=== PATIENT | female | born 1985 | race Caucasian/White ===

== ENCOUNTER 2018-07-05 16:51 | Emergency (ER) | payer BC, OTHER ==
[~2018-07-05] VITALS: Ht 165.1 cm; Wt 104.3 kg
[~2018-07-05 16:51] MED LIST: ALPR.25T PO; CFP200T PO; CITA40TA19 PO; CLN2C40 PV; IBP600T1 PO; OXYC-12 PO; PRM25T PO; TERC45CR VG; ZLP10T PO
--- OUTSIDE RECORDS SUMMARY | 2018-07-05 16:56 | XMS REPORT ---
Author Author JEFFREY Nicole [facility] IN [facility] Address [address] [place] [address] Care Team Providers Care Wafer Fab Operator Name Role Phone JEFFREY Nicole Unavailable PROBLEMS Unknown Problems ALLERGIES No Information ENCOUNTERS Encounter Location Date Diagnosis [facility] IN [facility] [id number], [place] [address] Oct, [facility] [id number], [place] [address] Sep, Screen for STD (sexually transmitted disease) Z11.3 [facility] [address] [id number], [place] [address] Sep, Screen for STD (sexually transmitted disease) Z11.3 IMMUNIZATIONS No Known Immunizations SOCIAL HISTORY Never Assessed REASON FOR VISIT PLAN OF CARE VITAL SIGNS MEDICATIONS Unknown Medications RESULTS No Results PROCEDURES No Known procedures INSTRUCTIONS MEDICATIONS ADMINISTERED No Known Medications MEDICAL (GENERAL) HISTORY Type Description Date Surgical History appendectomy Surgical History cholecystectomy Surgical History section Surgical History breast implants Surgical History arthroscopic right hip Hospitalization History Mental Health and Surgery
--- OUTSIDE RECORDS SUMMARY | 2018-07-05 16:56 | XMS REPORT ---
Author Author JEFFREY Nicole [facility] IN [facility] Address [address] [place] [address] Care Team Providers Care Cardiac Technician Name Role Phone JEFFREY Nicole Unavailable PROBLEMS Unknown Problems ALLERGIES No Known Allergies ENCOUNTERS Encounter Location Date Diagnosis [facility] IN [facility] [address] [facility] [id number] [address] Oct, [facility] [address] [facility] [id number], [place] [address] Sep, Screen for STD (sexually transmitted disease) Z11.3 [facility] IN [facility] [address] [facility] [id number], [place] [address] Sep, Screen for STD (sexually transmitted disease) Z11.3 IMMUNIZATIONS No Known Immunizations SOCIAL HISTORY Never Assessed REASON FOR VISIT STD check- Merena x3 years sexual partener not exclusive JStrasserRN PLAN OF CARE Activity Details Follow Up prn Reason: VITAL SIGNS Height 66 in 2016-09-14 Weight 213.2 lbs 2016-09-14 Temperature 97.5 degrees Fahrenheit 2016-09-14 Heart Rate 120 bpm 2016-09-14 Respiratory Rate 22 2016-09-14 BMI 34.41 kg/m2 2016-09-14 Blood pressure systolic 134 mmHg 2016-09-14 Blood pressure diastolic 80 mmHg 2016-09-14 MEDICATIONS Medication Instructions Dosage Frequency Start Date End Date Duration Status Trazodone HCl 150 MG Orally Once a day 1 tablet at bedtime as needed 24h Active Fetzima 80 MG Orally Once a day 1 capsule 24h Active RESULTS Name Result Date Reference Range TRICHOMONAS (IN HOUSE) 2016-09-14 TRICHOMONAS negative Control + Lot # [id number] Exp date 2017-08-08 BACTERIAL VAGINOSIS (IN HOUSE) 2016-09-14 RESULTS negative Control + Lot # [id number] Exp date 2017-01 CULTURE, GENITAL 2016-09-14 Genital Culture, Routine Final report Result 1 GC/CHLAM PROBE (STATE) 2016-09-14 CHLAMYDIA GC PROCEDURES Procedure Date Ordered Result Body Site TRICHOMONAS ASSAY W/OPTIC September 14, 2016 STEPHENS VAG, DNA, DIR PROBE September 14, 2016 No Charge September 14, 2016 CULTURE, BACTERIA, OTHER September 14, 2016 INSTRUCTIONS MEDICATIONS ADMINISTERED No Known Medications MEDICAL (GENERAL) HISTORY Type Description Date Surgical History appendectomy Surgical History cholecystectomy Surgical History section Surgical History breast implants Surgical History arthroscopic right hip Hospitalization History Mental Health and Surgery
--- OUTSIDE RECORDS SUMMARY | 2018-07-05 16:56 | XMS REPORT ---
Author Author JEFFREY Nicole Organization [facility] Address [address] [place] [address] Care Team Providers Care Print Line Inspector Name Role Phone JEFFREY Nicole Unavailable PROBLEMS Unknown Problems ALLERGIES No Information ENCOUNTERS Encounter Location Date Diagnosis [facility] [address] [facility] [id number], [place] [address] Oct, [facility] [address] [facility] [id number], [place] [address] Sep, Screen for STD (sexually transmitted disease) Z11.3 [facility] [address] [facility] [id number], [place] [address] Sep, Screen for STD (sexually transmitted disease) Z11.3 IMMUNIZATIONS No Known Immunizations SOCIAL HISTORY Never Assessed REASON FOR VISIT Lab (walk-in) PLAN OF CARE VITAL SIGNS MEDICATIONS Unknown Medications RESULTS Name Result Date Reference Range HEP C ANTIBODY (STATE) 2016-09-14 RESULTS non reactive SYPHILIS (STATE) 2016-09-14 HIV (STATE) 2016-09-14 HEP B SURFACE ANTIGEN (STATE) 2016-09-14 HEP B ANTIBODY non reactive HEP B ANTIBODY (RML) HEP B ANTIBODY (STATE) PROCEDURES Procedure Date Ordered Result Body Site No Charge September 17, 2016 VENIPUNCT, ROUTINE* September 17, 2016 INSTRUCTIONS MEDICATIONS ADMINISTERED No Known Medications MEDICAL (GENERAL) HISTORY Type Description Date Surgical History appendectomy Surgical History cholecystectomy Surgical History section Surgical History breast implants Surgical History arthroscopic right hip Hospitalization History Mental Health and Surgery
--- OUTSIDE RECORDS SUMMARY | 2018-07-05 16:56 | XMS REPORT ---
Author Author NICO DURANT [facility] Address [address] [place] [address] Care Team Providers Care Brush Material Preparer Name Role Phone NICO DURANT Unavailable PROBLEMS Unknown Problems ALLERGIES Substance Reaction Event Type Date Status Compazine tardive dyskinesia Drug Allergy July, Active ENCOUNTERS Encounter Location Date Diagnosis [facility] [address] [address] July, Hives L50.9 [facility] [id number] [place] [address] Oct, [facility] [address] [address] Sep, Screen for STD (sexually transmitted disease) Z11.3 [facility] [address] [address] Sep, Screen for STD (sexually transmitted disease) Z11.3 IMMUNIZATIONS No Known Immunizations SOCIAL HISTORY Never Assessed REASON FOR VISIT welts, intermittent hives since may, have resolved at this time-----Jarrett , has been seen in urgent care and given steroids in the past PLAN OF CARE Activity Details Follow Up 4 Weeks Reason:PAP/WWE VITAL SIGNS Height 66 in 2017-08-07 Weight 235 lbs 2017-08-07 Temperature 98.1 degrees Fahrenheit 2017-08-07 Heart Rate 90 bpm 2017-08-07 Respiratory Rate 20 2017-08-07 BMI 37.93 kg/m2 2017-08-07 Blood pressure systolic 100 mmHg 2017-08-07 Blood pressure diastolic 64 mmHg 2017-08-07 MEDICATIONS Medication Instructions Dosage Frequency Start Date End Date Duration Status Fetzima 80 MG Orally Once a day 1 capsule 24h Active Mirena Active Loratadine Active RESULTS No Results PROCEDURES No Known procedures INSTRUCTIONS MEDICATIONS ADMINISTERED No Known Medications MEDICAL (GENERAL) HISTORY Type Description Date Surgical History appendectomy Surgical History cholecystectomy Surgical History section Surgical History breast implants Surgical History arthroscopic right hip Hospitalization History Mental Health and Surgery
[2018-07-05] MEDS ORDERED: LACTATED RINGERS 1,000 ML IV ONE (17:19)
--- NOTE | 2018-07-05 17:24 | ED Respiratory ---
General Stated Complaint: FEVER,CHILLS Source: patient Exam Limitations: no limitations History of Present Illness Date Seen by Provider: Jul 05, 2018 Time Seen by Provider: 17:09 Initial Comments Patient presents to ER by private conveyance with chief complaint for the past months she's had some respiratory cough and cold symptoms and when it went on for about 10 days she started having some sinus discharge she went to the walk- in clinic at [facility] and they told her she had sinusitis and viral upper respiratory tract infection. They gave her a shot of steroids and put her on Augmentin for 10 days. At the end of that she was feeling pretty good however a few days later she started getting symptoms back. No sore throat no significant nasal discharge this time but is having some chills without having actually check a temperature. She is more concerned because she's been coughing a lot sometimes productive. She feels like it is getting worse over the past couple weeks. She's tried all the aips-fhl-dusmeks cough and cold remedies as well as a dextromethorphan cough syrup prescribed by the clinic. She said she's not able to get any sleep because the coughing and is very exasperated about this. No history of lung disease, she quit smoking a few weeks ago from about a quarter pack per day. She does not smoke marijuana but she did try edible couple days ago because she was desperate to get some sleep. She has no other significant medical history except for some depression. She didn't bring she test couple days ago and it was negative. Allergies and Home Medications Allergies Coded Allergies: No Known Allergies (Verified Allergy, Unknown, 12/07/05) Home Medications Alprazolam 0.25 Mg Tablet, 1 TAB PO HS, (Reported) qHS as needed Citalopram Hydrobromide 40 Mg Tablet, 1 EACH PO DAILY, (Reported) Ibuprofen 600 Mg Tab, 600 MG PO Q6HR, (Reported) q6hrs as needed Oxycodone Hcl/Acetaminophen 1 Each Tablet, 1-2 EACH PO Q4-6HR PRN, (Reported) Promethazine Hcl 25 Mg Tablet, 1 TAB PO Q6H, (Reported) q6hrs as needed Terconazole 45 Gm Cream.appl, 45 GM VG QHS, (Reported) Zolpidem Tartrate 10 Mg Tab, 10 MG PO HS PRN, (Reported) Patient Home Medication List Home Medication List Reviewed: Yes Review of Systems Review of Systems Constitutional: chills; No fever; malaise EENTM: No ear discharge, No hearing loss, No ear pain Respiratory: cough, phlegm; No short of breath, No stridor, No wheezing Cardiovascular: No chest pain, No edema Gastrointestinal: No abdominal pain, No constipation, No diarrhea, No nausea Genitourinary: No discharge, No dysuria Past Iwglefw-Reyebf-Kwghcr Hx Patient Social History Alcohol Use: Denies Use Recreational Drug Use: Yes Drug of Choice: THC, Hx Opiates Smoking Status: Current Someday Smoker Type Used: Cigarettes (0.25 ppd) Recent Foreign Travel: No Contact w/Someone Who Travel: No Physical Exam Vital Signs - First Documented 07/05/18 17:30 Temp 97.8 Pulse 146 Resp 18 B/P (MAP) 153/120 (131) Pulse Ox 97 O2 Delivery Room Air Capillary Refill : Height: '" Weight: lbs. oz. kg; BMI Method: General Appearance: mild distress, obese Eyes: Bilateral Eye Normal Inspection, Bilateral Eye PERRL, Bilateral Eye EOMI HEENT: PERRL/EOMI, normal ENT inspection, TMs normal, pharynx normal Neck: non-tender, full range of motion, supple, normal inspection Respiratory: lungs clear, no respiratory distress, no accessory muscle use, decreased breath sounds (mildly) Cardiovascular: normal peripheral pulses, regular rate, rhythm, no edema Neurologic/Psychiatric: alert, normal mood/affect, oriented x 3 Skin: normal color, warm/dry Progress/Results/Core Measures Suspected Sepsis SIRS Temperature: Pulse: Respiratory Rate: Laboratory Tests 07/05/18 17:46: White Blood Count 11.1H Blood Pressure / Mean: Laboratory Tests 07/05/18 17:46: Creatinine 0.86, Platelet Count 333, Total Bilirubin 0.8 Results/Orders Lab Results Laboratory Tests Test 07/05/18 17:46 07/05/18 18:30 Range/Units White Blood Count 11.1 H 4.3-11.0 10^3/uL Red Blood Count 5.12 4.35-5.85 10^6/uL Hemoglobin 14.1 11.5-16.0 G/DL Hematocrit 43 35-52 % Mean Corpuscular Volume 85 80-99 FL Mean Corpuscular Hemoglobin 28 25-34 PG Mean Corpuscular Hemoglobin Concent 33 32-36 G/DL Red Cell Distribution Width 14.1 10.0-14.5 % Platelet Count 333 130-400 10^3/uL Mean Platelet Volume 10.2 7.4-10.4 FL Neutrophils (%) (Auto) 58 42-75 % Lymphocytes (%) (Auto) 30 12-44 % Monocytes (%) (Auto) 9 0-12 % Eosinophils (%) (Auto) 2 0-10 % Basophils (%) (Auto) 0 0-10 % Neutrophils # (Auto) 6.4 1.8-7.8 X 10^3 Lymphocytes # (Auto) 3.3 1.0-4.0 X 10^3 Monocytes # (Auto) 1.0 0.0-1.0 X 10^3 Eosinophils # (Auto) 0.2 0.0-0.3 10^3/uL Basophils # (Auto) 0.0 0.0-0.1 10^3/uL Sodium Level 139 135-145 MMOL/L Potassium Level 3.5 L 3.6-5.0 MMOL/L Chloride Level 105 98-107 MMOL/L Carbon Dioxide Level 21 21-32 MMOL/L Anion Gap 13 5-14 MMOL/L Blood Urea Nitrogen 13 7-18 MG/DL Creatinine 0.86 0.60-1.30 MG/DL Estimat Glomerular Filtration Rate > 60 BUN/Creatinine Ratio 15 Glucose Level 85 70-105 MG/DL Calcium Level 9.5 8.5-10.1 MG/DL Corrected Calcium 9.1 8.5-10.1 MG/DL Magnesium Level 2.0 1.8-2.4 MG/DL Total Bilirubin 0.8 0.1-1.0 MG/DL Aspartate Amino Transf (AST/SGOT) 35 H 5-34 U/L Alanine Aminotransferase (ALT/SGPT) 51 0-55 U/L Alkaline Phosphatase 58 40-136 U/L C-Reactive Protein High Sensitivity 0.23 0.00-0.50 MG/DL Total Protein 7.8 6.4-8.2 GM/DL Albumin 4.5 3.2-4.5 GM/DL Urine Color YELLOW Urine Clarity CLEAR Urine pH 5 5-9 Urine Specific [place] 1.025 H 1.016-1.022 Urine Protein 2+ H NEGATIVE Urine Glucose (UA) NEGATIVE NEGATIVE Urine Ketones 2+ H NEGATIVE Urine Nitrite NEGATIVE NEGATIVE Urine Bilirubin 1+ H NEGATIVE Urine Urobilinogen 1 NORMAL MG/DL Urine Leukocyte Esterase 1+ H NEGATIVE Urine RBC (Auto) NEGATIVE NEGATIVE Urine RBC NONE /HPF Urine WBC RARE /HPF Urine Squamous Epithelial Cells 5-10 /HPF Urine Crystals NONE /LPF Urine Bacteria NEGATIVE /HPF Urine Casts NONE /LPF Urine Mucus MODERATE H /LPF Urine Culture Indicated NO My Orders Orders - DANIS MCKEON Ua Culture If Indicated (07/05/18 17:06) Urine Bedside (07/05/18 17:06) Chest Pa/Lat (2 View) (07/05/18 17:19) Cbc With Automated Diff (07/05/18 17:19) Comprehensive Metabolic Panel (07/05/18 17:19) Hs C Reactive Protein (07/05/18 17:19) Magnesium (07/05/18 17:19) Sputum Culture (07/05/18 17:19) Ed Iv/Invasive Line Start (07/05/18 17:19) Lactated Ringers (Lr 1000 Ml Iv Solution (07/05/18 17:19) Albuterol/Ipra Inhalation Soln (Duoneb I (07/05/18 19:00) Svn Small Volume Nebulizer (07/05/18 18:57) Ketorolac Injection (Toradol Injection) (07/05/18 19:00) Medications Given in ED Current Medications Medications Dose Ordered Sig/Diane Route Start Time Stop Time Status Last Admin Dose Admin Albuterol/ Ipratropium 3 ml ONCE ONCE INH 07/05/18 19:00 07/05/18 19:01 DC 07/05/18 19:12 3 ML Ketorolac Tromethamine 30 mg ONCE ONCE IVP 07/05/18 19:00 07/05/18 19:01 DC 07/05/18 19:09 30 MG Lactated Ringer's 1,000 ml @ 0 mls/hr Q0M ONCE IV 07/05/18 17:19 07/05/18 17:21 DC 07/05/18 17:30 1,000 MLS/HR Vital Signs/I&O 07/05/18 07/05/18 07/05/18 17:30 17:30 19:14 Temp 97.8 Pulse 146 Resp 18 B/P (MAP) 153/120 (131) Pulse Ox 97 96 O2 Delivery Room Air Room Air Room Air Capillary Refill : Progress Note : Time: 19:30 Progress Note Aeration improved after a breathing treatment so we'll send her home with a albuterol inhaler and spacer prescription for bronchitis likely viral in origin. We'll encourage her to follow-up Saturday with primary care. Departure Impression Primary Impression: Bronchitis Disposition: HOME, SELF-CARE Condition: Improved Departure-Patient Inst. Decision time for Depature: 19:33 Referrals: NICO DURANT APRN (PCP) Primary Care Physician [facility]/ARJEEV (Family) Primary Care Physician Patient Instructions: Acute Bronchitis, Adult (DC) Add. Discharge Instructions: Please use the albuterol 2 puffs through the spacer every 4 hours as needed for intractable coughing or wheezing. Use the Tessalon Perles 12 capsules every 6 hours as needed for cough. You may use Benadryl 1-2 tablets especially at night if you needs some help getting sleep. Continue to use your prescribed cetirizine. Follow-up in one to 2 weeks with primary care for reevaluation as needed. Continue to use humidifiers, vapor rubs such as Vicks or Mentholatum and over- the-counter cough and cold remedies as necessary. You may derive benefit from Mucinex. Scripts Inhaler, Assist Devices (E-Z Spacer) 1 Each Spacer EACH MC for Cough, #1 Prov: DANIS MCKEON 07/05/18 Benzonatate (TESSALON PERLES) 100 Mg Capsule 1-2 CAP PO Q6H PRN for COUGH, #30 CAP 0 Refills Prov: DANIS MCKEON 07/05/18 Albuterol Sulfate (PROAIR HFA) 1 Puff Puff 2 PUFF IH Q4H PRN for COUGH for 30 Days, #1 EA 0 Refills 1 PUFF = 90 MCG Prov: DANIS MCKEON 07/05/18 Work/School Note: Work Release Form Date Seen in the Emergency Department: Jul 05, 2018 Return to Work: Jul 06, 2018 Restrictions: No Restrictions DANIS MCKEON Jul 05, 2018 17:24
[2018-07-05 17:50] LABS: BASOPHILS % (AUTO) 0 % (0-10); EOSINOPHILS # (AUTO) 0.2 10^3/uL (0.0-0.3); EOSINOPHILS % (AUTO) 2 % (0-10); HEMATOCRIT 43 % (35-52); HEMOGLOBIN 14.1 G/DL (11.5-16.0); LYMPHOCYTES # (AUTO) 3.3 X 10^3 (1.0-4.0); LYMPHOCYTES % (AUTO) 30 % (12-44); MEAN CORPUSCULAR HEMOGLOBIN 28 PG (25-34); MEAN CORPUSCULAR HGB CONC 33 G/DL (32-36); MEAN CORPUSCULAR VOLUME 85 FL (80-99); MEAN PLATELET VOLUME 10.2 FL (7.4-10.4); MONOCYTES % (AUTO) 9 % (0-12); NEUTROPHILS # (AUTO) 6.4 X 10^3 (1.8-7.8); NEUTROPHILS % (AUTO) 58 % (42-75); PLATELET COUNT 333 10^3/uL (130-400); RED CELL DISTRIBUTION WIDTH 14.1 % (10.0-14.5); WHITE BLOOD COUNT 11.1 10^3/uL (4.3-11.0)
--- NOTE | 2018-07-05 18:05 | Diagnostic Imaging Report ---
INDICATION: Cough and congestion. TIME OF EXAM: 05:53 p.m. No prior studies are available for comparison. The heart size is normal. The pulmonary vascularity is unremarkable. The lungs are clear. No infiltrate, effusion or pneumothorax is detected. IMPRESSION: No acute cardiopulmonary process is detected. Dictated by: Dictated on workstation # [id number]
[2018-07-05 18:12] LABS: ALANINE AMINOTRANSFERASE 51 U/L (0-55); ALBUMIN 4.5 GM/DL (3.2-4.5); ALKALINE PHOSPHATASE 58 U/L (40-136); BILIRUBIN,TOTAL 0.8 MG/DL (0.1-1.0); BUN/CREATININE RATIO 15; CALCIUM 9.5 MG/DL (8.5-10.1); CARBON DIOXIDE 21 MMOL/L (21-32); CHLORIDE 105 MMOL/L (98-107); CREATININE SERUM 0.86 MG/DL (0.60-1.30); GFR ESTIMATED > 60; GLUCOSE 85 MG/DL (70-105); POTASSIUM 3.5 MMOL/L (3.6-5.0); SODIUM 139 MMOL/L (135-145); TOTAL PROTEIN 7.8 GM/DL (6.4-8.2)
[2018-07-05 18:37] LABS: CLARITY,URINE CLEAR; COLOR,URINE YELLOW; GLUCOSE, URINE (UA) NEGATIVE (NEGATIVE); KETONES,URINE 2+ (NEGATIVE); LEUKOCYTE ESTERASE ,URINE 1+ (NEGATIVE); NITRITE,URINE NEGATIVE (NEGATIVE); PH,URINE 5 (5-9); PROTEIN,URINE 2+ (NEGATIVE); UROBILINOGEN,URINE 1 MG/DL (NORMAL)
[2018-07-05 18:44] LABS: BILIRUBIN,URINE 1+ (NEGATIVE)
[2018-07-05 18:46] LABS: BACTERIA,URINE NEGATIVE /HPF; WBC,URINE RARE /HPF
[2018-07-05] MEDS ORDERED: RT-ALBUTEROL/IPRATROPIUM 3 ML (DUONEB) VIAL INH ONE (19:00)
[2018-07-05] MEDS ORDERED: KETOROLAC 30 MG/ML VIAL IVP ONE (19:00)
[2018-07-05] MEDS ORDERED: BENZ100C18 PO (19:37)
[2018-07-05] MEDS ORDERED: INHA1INH59 MC (19:37)
[2018-07-05] MEDS ORDERED: RT-ALBUINH IH (19:37)
[2018-07-05] MEDS ORDERED: RX-ALBUTEROL INHALER (PROAIR) 8 GM IH ONE (19:49)
[2018-07-05] MEDS ORDERED: RX-ALBUTEROL INHALER (PROAIR) 8 GM IH STA (19:50)
[2018-07-05 19:59] VITALS: BP 147/98
== END 2018-07-05 19:59 | disposition home or self-care (01) ==
LOC: EDUNIT# 16:51 → ER 16:52
DX: J40 Bronchitis, not specified as acute or chronic (principal); F12.10 Cannabis abuse, uncomplicated; F17.210 Nicotine dependence, cigarettes, uncomplicated
CPT/HCPCS: 36415; 71046; 80053; 81000; 83735; 85025; 86141; 94640

== ENCOUNTER 2018-09-19 20:06 | Emergency (ER) | payer BC ==
[~2018-09-19] VITALS: Ht 165.1 cm; Wt 104.3 kg
[~2018-09-19 20:06] MED LIST changes: +BENZ100C18 PO; +INHA1INH59 MC; +RT-ALBUINH IH
[2018-09-19] MEDS ORDERED: TETANUS,DIPTH,PERTUSS P/F (BOOSTRIX) 0.5 ML VIAL IM ONE (20:15)
[2018-09-19] MEDS ORDERED: LIDOCAINE 1% INJ 20 ML 20 ML VIAL INJ ONE (20:15)
--- NOTE | 2018-09-19 20:18 | ED Integumentary General ---
General Stated Complaint: L HAND LAC Source: patient Exam Limitations: no limitations History of Present Illness Date Seen by Provider: Sep 19, 2018 Time Seen by Provider: 20:10 Initial Comments Patient presents to ER by private conveyance with chief complaint of catching a butter dish fell and broke and caused a laceration to her fourth digit proximal phalanx approximately 1 inch long on the palmar side. She cleaned it with soap and water and apply direct pressure but she decided it would probably need stitches so she came to the ER. She does not think she's had a tetanus shot in the last 5 years. Allergies and Home Medications Allergies Coded Allergies: No Known Allergies (Verified Allergy, Unknown, 12/07/05) Home Medications Albuterol Sulfate 1 Puff Puff, 2 PUFF IH Q4H PRN for COUGH 1 PUFF = 90 MCG Prescribed by: DANIS MCKEON on 07/05/181936 Alprazolam 0.25 Mg Tablet, 1 TAB PO HS, (Reported) qHS as needed Benzonatate 100 Mg Capsule, 1-2 CAP PO Q6H PRN for COUGH Prescribed by: DANIS MCKEON on 07/05/181936 Citalopram Hydrobromide 40 Mg Tablet, 1 EACH PO DAILY, (Reported) Ibuprofen 600 Mg Tab, 600 MG PO Q6HR, (Reported) q6hrs as needed Oxycodone Hcl/Acetaminophen 1 Each Tablet, 1-2 EACH PO Q4-6HR PRN, (Reported) Promethazine Hcl 25 Mg Tablet, 1 TAB PO Q6H, (Reported) q6hrs as needed Terconazole 45 Gm Cream.appl, 45 GM VG QHS, (Reported) Zolpidem Tartrate 10 Mg Tab, 10 MG PO HS PRN, (Reported) Patient Home Medication List Home Medication List Reviewed: Yes Review of Systems Review of Systems Constitutional: No chills, No diaphoresis EENTM: No ear discharge, No hearing loss Respiratory: No cough, No short of breath Cardiovascular: No chest pain, No edema Past Lmaxzkm-Rnigka-Waybao Hx Patient Social History Alcohol Use: Occasionally Uses Recreational Drug Use: Yes Drug of Choice: THC, Hx Opiates Smoking Status: Current Someday Smoker Type Used: Cigarettes Former Smoker, Quit: Jun 30, 2018 Recent Foreign Travel: No Contact w/Someone Who Travel: No Recent Hopitalizations: No Immunizations Up To Date Tetanus Booster (TDap): Unknown PED Vaccines UTD: Yes Seasonal Allergies Seasonal Allergies: Yes Past Medical History Surgeries: Yes (BREAST AUGMENTATION) Appendectomy, Section, Gallbladder Respiratory: No Cardiac: No Neurological: No Genitourinary: No Gastrointestinal: No Musculoskeletal: No Endocrine: No Cancer: No Psychosocial: Yes Depression Integumentary: No Physical Exam Vital Signs Capillary Refill : General Appearance: WD/WN, no apparent distress HEENT: PERRL/EOMI, normal ENT inspection, pharynx normal Neck: non-tender, full range of motion Cardiovascular: normal peripheral pulses, regular rate, rhythm Respiratory: no respiratory distress, no accessory muscle use Gastrointestinal: normal bowel sounds, non tender, soft Neurologic/Psychiatric: no motor/sensory deficits, alert, oriented x 3 Skin: other (2.5 cm linear laceration in the subcutaneous tissue on the palmar side fourth digit left hand.) Procedures/Interventions Wound Location: Upper Extremities Other Wound Location Left hand fourth finger proximal phalanx palmar side Wound Length (cm): 2.5 Wound's Depth, Shape: linear, sub Q Wound Explored: no foreign body removed Irrigated w/ Saline (ccs): 12 Betadine Prep?: Yes (chlorhexidine and sterile saline) Anesthesia: 1% Lidocaine Volume Anesthetic (ccs): 4 Wound Debrided: minimal Suture: Ethlion Suture Size: 4-0 Number of Sutures: 3 Sterile Dressing Applied?: Yes Progress Digital block was applied and using 1-1/2 cc bilaterally and then 2 cc were infiltrated into the skin edges to achieve anesthesia. The skin was then thoroughly cleaned using chlorhexidine and sterile saline. It was then flushed out using 12 cc of sterile saline. Only about 1-2 mm deep. We then reapproximated the skin edges and closed with 3 simple interrupted sutures. The wound was hemostatic and the patient tolerated procedure well. Progress/Results/Core Measures Results/Orders My Orders Orders - DANIS MCKEONtTravon(Acell),Tet Adult (Boostrix (09/19/18 20:15) Lidocaine 1% Inj 20 Ml (Xylocaine 1% Inj (09/19/18 20:15) Medications Given in ED Current Medications Medications Dose Ordered Sig/Diane Route Start Time Stop Time Status Last Admin Dose Admin Diphtheria/ Tetanus/Acell Pertussis 0.5 ml ONCE ONCE IM 09/19/18 20:15 09/19/18 20:16 DC 09/19/18 20:21 0.5 ML Lidocaine HCl 20 ml ONCE ONCE INJ 09/19/18 20:15 09/19/18 20:16 DC 09/19/18 20:22 20 ML Departure Impression Primary Impression: Laceration of left hand without complication, including fingers Qualified Codes: S61.412A - Laceration without foreign body of left hand, initial encounter; S61.219A - Laceration without foreign body of unspecified finger without damage to nail, initial encounter Disposition: HOME, SELF-CARE Condition: Improved Departure-Patient Inst. Decision time for Depature: 20:36 Referrals: MARIBEL LINARES MD (PCP/Family) Primary Care Physician Patient Instructions: Laceration Repair With Stitches (DC) Add. Discharge Instructions: Keep the wound clean and dry. Change the dressing daily or as often as it becomes soiled. You may use a thin dollop of Vaseline to keep the stitches from sticking to the dressing. Do not use anti-septic such as hydrogen peroxide, alcohol or iodine. Take the antibiotics 1 tablet by mouth with food twice a day for 3 days to prevent infection. Soap and water is all that you need to clean the hand. Do not submerse the hand under water until the sutures come out in 10-14 days. You may return to the ER or your primary care doctor to have this done. If the wound looks ice becoming infected such as increasing redness swelling and pain or discharge then you should see a doctor. Scripts Sulfamethoxazole/Trimethoprim (Bactrim Ds Tablet) 1 Each Tablet 1 EACH PO BID for 3 Days, #6 TAB 0 Refills Prov: DANIS MCKEON 09/19/18 Work/School Note: Work Release Form Date Seen in the Emergency Department: Sep 19, 2018 Return to Work: Sep 20, 2018 Restrictions: Need Release from Doctor Other Restrictions Listed Below: Do not submerse your left hand until the sutures are out. DANIS MCKEON Sep 19, 2018 20:18
[2018-09-19] MEDS ORDERED: SULF1TAB35 PO (20:38)
[2018-09-19 20:43] VITALS: BP 136/81
--- OUTSIDE RECORDS SUMMARY | 2018-09-19 22:00 | XMS REPORT | Continuity of Care Document ---
Author Organization Unknown Address Unknown Allergies Active Description Code Type Severity Reaction Onset Reported/Identified Relationship to Patient Clinical Status Yes NKANo Known Allergies NKA Miscellaneous Allergy Unknown N/A 12/07/2005 Medications There is no data. Problems Date Dx Coded Attending Type Code Diagnosis Diagnosed By 07/05/2018 DANIS MCKEON MD Ot F12.10 CANNABIS ABUSE, UNCOMPLICATED 07/05/2018 DANIS MCKEON MD Ot F17.210 NICOTINE DEPENDENCE, CIGARETTES, UNCOMPL 07/05/2018 DANIS MCKEON MD Ot J40 BRONCHITIS, NOT SPECIFIED ACUTE OR CH 07/05/2018 DANIS MCKEON MD Ot R50.9 FEVER, UNSPECIFIED 07/07/2018 DANIS MCKEON MD Ot F12.10 CANNABIS ABUSE, UNCOMPLICATED 07/07/2018 DANIS MCKEON MD Ot F17.210 NICOTINE DEPENDENCE, CIGARETTES, UNCOMPL 07/07/2018 DANIS MCKEON MD Ot J40 BRONCHITIS, NOT SPECIFIED ACUTE OR CH 07/07/2018 DANIS MCKEON MD Ot R50.9 FEVER, UNSPECIFIED Procedures There is no data. Results Test Result Range Complete blood count (CBC) with automated white blood cell (WBC) differential - 07/05/18 17:46 Blood leukocytes automated count (number/volume) 11.1 10*3/uL 4.3-11.0 Blood erythrocytes automated count (number/volume) 5.12 10*6/uL 4.35-5.85 Venous blood hemoglobin measurement (mass/volume) 14.1 g/dL 11.5-16.0 Blood hematocrit (volume fraction) 43 % 35-52 Automated erythrocyte mean corpuscular volume 85 [foz_us] 80-99 Automated erythrocyte mean corpuscular hemoglobin (mass per erythrocyte) 28 pg 25-34 Automated erythrocyte mean corpuscular hemoglobin concentration measurement (mass/volume) 33 g/dL 32-36 Automated erythrocyte distribution width ratio 14.1 % 10.0- 14.5 Automated blood platelet count (count/volume) 333 10*3/uL 130-400 Automated blood platelet mean volume measurement 10.2 [foz_us] 7.4-10.4 Automated blood neutrophils/100 leukocytes 58 % 42-75 Automated blood lymphocytes/100 leukocytes 30 % 12-44 Blood monocytes/100 leukocytes 9 % 0-12 Automated blood eosinophils/100 leukocytes 2 % 0-10 Automated blood basophils/100 leukocytes 0 % 0-10 Blood neutrophils automated count (number/volume) 6.4 10*3 1.8-7.8 Blood lymphocytes automated count (number/volume) 3.3 10*3 1.0-4.0 Blood monocytes automated count (number/volume) 1.0 10*3 0.0- 1.0 Automated eosinophil count 0.2 10*3/uL 0.0-0.3 Automated blood basophil count (count/volume) 0.0 10*3/uL 0.0-0.1 Comprehensive metabolic panel - 07/05/18 17:46 Serum or plasma sodium measurement (moles/volume) 139 mmol/L 135-145 Serum or plasma potassium measurement (moles/volume) 3.5 mmol/L 3.6-5.0 Serum or plasma chloride measurement (moles/volume) 105 mmol/L 98-107 Carbon dioxide 21 mmol/L 21-32 Serum or plasma anion gap determination (moles/volume) 13 mmol/L 5-14 Serum or plasma urea nitrogen measurement (mass/volume) 13 mg/dL 7-18 Serum or plasma creatinine measurement (mass/volume) 0.86 mg/dL 0.60-1.30 Serum or plasma urea nitrogen/creatinine mass ratio 15 NRG Serum or plasma creatinine measurement with calculation of estimated glomerular filtration rate > NRG Serum or plasma glucose measurement (mass/volume) 85 mg/dL 70-105 Serum or plasma calcium measurement (mass/volume) 9.5 mg/dL 8.5-10.1 Serum or plasma total bilirubin measurement (mass/volume) 0.8 mg/dL 0.1-1.0 Serum or plasma alkaline phosphatase measurement (enzymatic activity/volume) 58 U/L 40-136 Serum or plasma aspartate aminotransferase measurement (enzymatic activity/volume) 35 U/L 5-34 Serum or plasma alanine aminotransferase measurement (enzymatic activity/volume) 51 U/L 0-55 Serum or plasma protein measurement (mass/volume) 7.8 g/dL 6.4-8.2 Serum or plasma albumin measurement (mass/volume) 4.5 g/dL 3.2-4.5 CALCIUM CORRECTED 9.1 mg/dL 8.5-10.1 Magnesium - 07/05/18 17:46 Magnesium 2.0 mg/dL 1.8-2.4 Serum or plasma C reactive protein measurement (mass/volume) - 07/05/18 17:46 Serum or plasma C reactive protein measurement (mass/volume) 0.23 mg/dL 0.00-0.50 Complete urinalysis with reflex to culture - 07/05/18 18:30 Urine color determination YELLOW NRG Urine clarity determination CLEAR NRG Urine pH measurement by test strip 5 5-9 Specific gravity of urine by test strip 1.025 1.016-1.022 Urine protein assay by test strip, semi-quantitative 2+ NEGATIVE Urine glucose detection by automated test strip NEGATIVE NEGATIVE Erythrocytes detection in urine sediment by light microscopy NEGATIVE NEGATIVE Urine ketones detection by automated test strip 2+ NEGATIVE Urine nitrite detection by test strip NEGATIVE NEGATIVE Urine total bilirubin detection by test strip 1+ NEGATIVE Urine urobilinogen measurement by automated test strip (mass/volume) 1 mg/dL NORMAL Urine leukocyte esterase detection by dipstick 1+ NEGATIVE Automated urine sediment erythrocyte count by microscopy (number/high power field) NONE NRG Automated urine sediment leukocyte count by microscopy (number/high power field) RARE NRG Bacteria detection in urine sediment by light microscopy NEGATIVE NRG Squamous epithelial cells detection in urine sediment by light microscopy 5-10 NRG Crystals detection in urine sediment by light microscopy NONE NRG Casts detection in urine sediment by light microscopy NONE NRG Mucus detection in urine sediment by light microscopy MODERATE NRG Complete urinalysis with reflex to culture NO NRG Encounters ACCT No. Visit Date/Time Discharge Status Pt. Type Provider Facility Loc./Unit Complaint [id number] 07/05/2018 16:52:00 07/05/2018 19:59:00 DIS Emergency MIKE VALERO, DANIS Garcia [facility] ER [place]
== END 2018-09-19 20:43 | disposition home or self-care (01) ==
LOC: EDUNIT# 20:06 → ER 20:08
DX: S61.215A Laceration without foreign body of left ring finger without damage to nail, initial encounter (principal); F32.9 Major depressive disorder, single episode, unspecified; F12.10 Cannabis abuse, uncomplicated; F17.210 Nicotine dependence, cigarettes, uncomplicated; Z90.49 Acquired absence of other specified parts of digestive tract; W20.8XXA Other cause of strike by thrown, projected or falling object, initial encounter; W26.8XXA Contact with other sharp object(s), not elsewhere classified, initial encounter
CPT/HCPCS: 12002; 90471; 90715

== ENCOUNTER → 2021-08-08 | Outpatient (RCR) | payer OTHER ==
[~2021-08-08] MED LIST changes: +SULF1TAB38 PO
== END | disposition home or self-care (01) ==
DX: M54.9 Dorsalgia, unspecified (principal)

== ENCOUNTER 2021-08-21 16:19 | Outpatient (RCR) | payer OTHER | END 2021-09-07 09:28 | disposition home or self-care (01) | DX: M54.6 Pain in thoracic spine (principal) ==